=== PATIENT | female | born 2000 | race Caucasian/White ===

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

== ENCOUNTER → 2020-02-13 14:11 | Observation (INO) | END | disposition home or self-care (01) | LOC: 1NENULAB | PROVIDERS: ADMIT Obstetrics & Gynecology; ATTEND Obstetrics & Gynecology ==

== ENCOUNTER 2020-02-17 09:57 | Inpatient (IN) ==
[2020-02-17] MEDS ORDERED: *HR* FentaNYL (PF) 100 MCG/2 ML VIAL IVP PRN (10:08)
[2020-02-17] MEDS ORDERED: Ondansetron 4 MG/2 ML VIAL IVP PRN ×2 (10:08→12:03)
[2020-02-17] MEDS ORDERED: Famotidine 20 MG/2 ML VIAL IVP PRN (10:08)
[2020-02-17] MEDS ORDERED: Metoclopramide 10 MG/2 ML VIAL IVP PRN (10:08)
[2020-02-17] MEDS ORDERED: miSOPROStoL 25 MCG TABLET VG PRN (10:08)
[2020-02-17] MEDS ORDERED: Lidocaine 1% 20 ML MDV INFILT PRN (10:08)
[2020-02-17] MEDS ORDERED: D5% in 0.45% NACL 1,000 ML IVC SCH (10:15)
[2020-02-17 10:43] LABS: Basophils % 0.4 %; Eosinophils # 0.2 K/mcL (0.0-0.6); Eosinophils % 1.9 %; Hematocrit 32.1 % (35.3-44.9); Hemoglobin 10.3 g/dL (11.5-15.4); Immature Granulocytes % 0.5 % (0-4); Lymphocytes # 2.2 K/mcL (0.6-4.6); Lymphocytes % 21.9 %; Mean Corpuscular HGB Conc 32.1 g/dL (31.6-35.5); Mean Corpuscular Hemoglobin 26.5 pg (28.0-33.3); Mean Corpuscular Volume 82.5 fL (83.0-100.0); Mean Platelet Volume 10.6 fL (9.4-12.4); Monocytes # 0.6 K/mcL (0.0-1.3); Monocytes % 5.7 %; Platelet Count 226 K/mcL (140-400); Red Blood Count 3.89 M/mcL (3.82-4.97); Red Cell Distribution Width 14.1 % (11.5-14.5); Segmented Neutrophils % 69.6 %; White Blood Count 10.1 K/mcL (4.3-11.1)
[2020-02-17] MEDS ORDERED: Ringers Solution, Lactated 1,000 ML ONE ×2 (10:48→14:08)
[2020-02-17 10:51] LABS: Amphetamine Screen,Urine Negative ng/mL (Cutoff=1000); Barbiturate Screen,Urine Negative ng/mL (Cutoff=200); Benzodiazepines Screen,Urine Negative ng/mL (Cutoff=200); Cannabinoid Screen,Urine Negative ng/mL (Cutoff = 50); Cocaine Screen,Urine Negative ng/mL (Cutoff= 300); Opiate Screen,Urine Negative ng/mL (Cutoff=300); Phencyclidine Screen,Urine Negative ng/mL (Cutoff=25)
[2020-02-17] MEDS ORDERED: miSOPROStoL 25 MCG TABLET PO PRN (11:11)
[2020-02-17] MEDS ORDERED: *HR* FentaNYL (PF) 100 MCG/2 ML VIAL EP ONE (12:03)
[2020-02-17] MEDS ORDERED: Ropivacaine/PF 0.2% 20 ML VIAL EP ONE (12:03)
[2020-02-17] MEDS ORDERED: EPHEDrine 50 MG/ML VIAL IVP PRN (12:03)
[2020-02-17] MEDS ORDERED: Epidural Premix (fent/bupiv) 110 ML EP SCH (12:15)
[2020-02-17] MEDS ORDERED: Ropivacaine/PF 0.2% 20 ML VIAL ONE (14:36)
[2020-02-17] MEDS ORDERED: Oxytocin 20 units/ LR 1000 mL 20 UNIT/1,000 ML BAG IVC ONE (16:18)
[2020-02-17] MEDS ORDERED: Ibuprofen 600 MG TABLET PO PRN (18:38)
[2020-02-17] MEDS ORDERED: Oxytocin 20 units/ LR 1000 mL 20 UNIT/1,000 ML BAG IVC SCH (18:38)
[2020-02-17] MEDS ORDERED: Rho Immune Globulin 1,500 UNIT SYRINGE IM PRN (18:38)
[2020-02-17] MEDS ORDERED: Measles/Mumps/Rubella Vacc 0.5 ML VIAL SQ PRN (18:38)
[2020-02-17] MEDS ORDERED: Acetaminophen 325 MG TABLET PO PRN (18:38)
[2020-02-18 05:40] LABS: Basophils % 0.3 %; Eosinophils # 0.2 K/mcL (0.0-0.6); Eosinophils % 1.2 %; Hematocrit 28.7 % (35.3-44.9); Hemoglobin 8.9 g/dL (11.5-15.4); Immature Granulocytes % 0.4 % (0-4); Lymphocytes # 1.7 K/mcL (0.6-4.6); Lymphocytes % 13.8 %; Mean Corpuscular Hemoglobin 25.4 pg (28.0-33.3); Mean Corpuscular Volume 81.8 fL (83.0-100.0); Monocytes # 0.8 K/mcL (0.0-1.3); Monocytes % 6.3 %; Neutrophils # 9.6 K/mcL (1.6-8.9); Platelet Count 188 K/mcL (140-400); Red Blood Count 3.51 M/mcL (3.82-4.97); Red Cell Distribution Width 14.2 % (11.5-14.5); White Blood Count 12.3 K/mcL (4.3-11.1)
[2020-02-18 07:38] VITALS: BP 118/78
[2020-02-18] MEDS ORDERED: Prenatal Vit/FA 1 EACH TABLET PO SCH ×2 (09:00)
== END 2020-02-18 10:42 | disposition home or self-care (01) | DRG 806 ==
LOC: 1NENULAB 09:57 → 1NENUOBS 18:49
PROVIDERS: ADMIT Student in an Organized Health Care Education/Training Program; ATTEND Student in an Organized Health Care Education/Training Program